=== PATIENT | male | born 1965 | race Caucasian/White ===

== ENCOUNTER 2017-09-03 11:16 | Inpatient (IN) | payer BC ==
[~2017-09-03] VITALS: Ht 182.9 cm; Wt 126.1 kg
[2017-09-03] VITALS (320 sets, daily range): BP systolic 135–149; BP diastolic 80–91; PULSE 74–77; TEMP 97.8–97.9; O2SAT 87–100
[~2017-09-03 11:16] MED LIST: AMBIEN10 MG PO; ASPIRIN 32325 MG/TAB PO; ASPIRIN E.C. 8181 MG PO; BENICAR 20MG TA20 MG PO; BLOOD PRESSURE PILL; BRILINTA90 MG PO; CARISOPRODOL; FLOMAX 0.40.4 MG/CAP PO; GLUCOPHAGE500 MG/TAB PO; ISMO 20MG20 MG PO; PERCOCET 325 MG1 TA2 PO; PHENERGAN12.5 M1 PO; PRILOSEC 20MG20 MG PO; PROCARDIA20 MG PO; TOPROL XL 50MG50 MG PO; TYLENOL 500MG500 MG PO; VICODIN 5/5001 UDTAB PO
[2017-09-03 11:51] LABS: BASO # 0.1 (0.0-0.2); EOS # 0.3 (0.0-0.7); EOS % 2.5 % (0-4.0); GRAN # 5.4 (1.4-6.5); GRAN % 54.5 % (42.2-75.2); HEMATOCRIT 42.3 % (42.0-52.0); HEMOGLOBIN 15.3 g/dl (13.5-18.0); LYMPH # 3.2 (1.2-3.4); LYMPH % 32.4 % (20.0-51.0); MEAN CELL VOLUME 89 fl (80.0-100.0); MEAN CORPUSCULAR HEMOGLOBIN 32 pg (27.0-31.0); MEAN CORPUSCULAR HGB CONC 36 g/dl (33.0-37.0); MEAN PLATELET VOLUME 10.6 fl (7.4-10.4); MONO # 0.9 (0.1-0.6); MONO % 9.3 % (1.7-9.3); PLATELET COUNT 209 K/mm3 (130-400); RED BLOOD COUNT 4.75 M/mm3 (4.20-5.60); REDCELL DISTRIBUTION WIDTH-CV 13.1 % (11.5-14.5)
[2017-09-03 11:55] LABS: PROTHROMBIN TIME 11.4 SECONDS (9.7-12.8)
[2017-09-03 11:58] LABS: PARTIAL THROMBOPLASTIN TIME 33.6 SECONDS (26.0-37.0)
[2017-09-03 12:05] LABS: ALANINE AMINOTRANSFERASE 77 U/L (21-72); ALBUMIN 3.7 gm/dL (3.5-5.0); ALKALINE PHOSPHATASE 66 U/L (50-136); ANION GAP 12 mmol/L (7-16); AST,SGOT 69 U/L (15-37); BILIRUBIN,TOTAL 0.8 mg/dL (0.0-1.0); BLOOD UREA NITROGEN 15 mg/dL (9-20); CALCIUM 8.9 mg/dL (8.4-10.2); CARBON DIOXIDE 24 mmol/L (22-30); CHLORIDE 107 mmol/L (98-107); CREATININE, serum 0.84 mg/dL (0.66-1.25); GLUCOSE 119 mg/dL (74-106); SODIUM 142 mmol/L (137-145); TOTAL PROTEIN 7.6 gm/dL (6.4-8.2)
[2017-09-03 12:18] LABS: TROPONIN-I < 0.012 ng/mL (0.000-0.034)
[2017-09-03] MEDS ORDERED: ASPIRIN 81M81 MG/TA2 PO (17:19)
[2017-09-03] MEDS ORDERED: FLOMAX 0.40.4 MG/CAP PO (17:19)
[2017-09-03] MEDS ORDERED: PRILOSEC 20MG20 MG PO (17:20)
[2017-09-03] MEDS ORDERED: TOPROL XL 50MG50 MG PO (17:20)
[2017-09-03] MEDS ORDERED: GLUCOPHAGE500 MG/TAB PO (17:21)
[2017-09-04] VITALS (660 sets, daily range): BP systolic 113–168; BP diastolic 61–116; PULSE 60–80; TEMP 96.4–99.5; O2SAT 83–100
[2017-09-04 06:18] LABS: BASO # 0.1 (0.0-0.2); BASO % 0.8 % (0.0-2.0); EOS # 0.3 (0.0-0.7); EOS % 3.2 % (0-4.0); HEMATOCRIT 40.2 % (42.0-52.0); LYMPH # 2.4 (1.2-3.4); LYMPH % 27.8 % (20.0-51.0); MEAN CELL VOLUME 91 fl (80.0-100.0); MEAN CORPUSCULAR HEMOGLOBIN 32 pg (27.0-31.0); MEAN CORPUSCULAR HGB CONC 35 g/dl (33.0-37.0); MEAN PLATELET VOLUME 11.1 fl (7.4-10.4); MONO # 0.8 (0.1-0.6); PLATELET COUNT 169 K/mm3 (130-400); REDCELL DISTRIBUTION WIDTH-CV 13.2 % (11.5-14.5)
[2017-09-04 06:25] LABS: ALANINE AMINOTRANSFERASE 66 U/L (21-72); ALBUMIN 3.3 gm/dL (3.5-5.0); ALKALINE PHOSPHATASE 58 U/L (50-136); ANION GAP 8 mmol/L (7-16); AST,SGOT 47 U/L (15-37); BILIRUBIN,TOTAL 0.9 mg/dL (0.0-1.0); BLOOD UREA NITROGEN 17 mg/dL (9-20); CALCIUM 8.7 mg/dL (8.4-10.2); CARBON DIOXIDE 26 mmol/L (22-30); CHLORIDE 104 mmol/L (98-107); CHOLESTEROL 162 mg/dL (120-200); CHOLESTEROL RISK RATIO 4.9; GLUCOSE 137 mg/dL (74-106); HDL CHOLESTEROL 33 mg/dL; LDL CHOLESTEROL 74 mg/dL; POTASSIUM 3.6 mmol/L (3.4-5.0); SODIUM 138 mmol/L (137-145); TOTAL PROTEIN 6.6 gm/dL (6.4-8.2); TRIGLYCERIDE 274 mg/dL
[2017-09-04 06:41] LABS: TROPONIN-I < 0.012 ng/mL (0.000-0.034)
[2017-09-05] VITALS: BP 121/89; BP 125/89; PULSE 75; TEMP 97.2; TEMP 97.3
[2017-09-05 04:00] VITALS: BP 125/67; PULSE 70; TEMP 97.2
[2017-09-05 08:00] VITALS: BP 143/94; PULSE 73; TEMP 97
[2017-09-05 10:20] LABS: CALCIUM 8.9 mg/dL (8.4-10.2); CREATININE, serum 0.81 mg/dL (0.66-1.25)
[2017-09-05] MEDS ORDERED: LIPITOR 80MG80 MG PO (10:51)
[2017-09-05] MEDS ORDERED: IMDUR 30MG30 MG/TAB PO (10:52)
[2017-09-05] MEDS ORDERED: ASPI325T6 PO (10:52)
[2017-09-05] MEDS ORDERED: ZESTRIL 5MG5 MG PO (10:52)
[2017-09-05] MEDS ORDERED: NITROSTAT0.4 MG/TAB SL (10:52)
[2017-09-05] MEDS ORDERED: GLUCOPHAGE500 MG/TAB PO (10:54)
== END 2017-09-05 11:35 | disposition home or self-care (01) | DRG 287 ==
LOC: COL.ER 11:16 → ICU 12:21 → MEDICAL 09-04 18:46 → ICU 09-04 19:07
PROVIDERS: Family Medicine; Internal Medicine; Internal Medicine Cardiovascular Disease
PROC: B2111ZZ Fluoroscopy of Multiple Coronary Arteries using Low Osmolar Contrast (ICD-10-PCS; principal; 2017-09-04)
PROC: B2151ZZ Fluoroscopy of Left Heart using Low Osmolar Contrast (ICD-10-PCS; 2017-09-04)
PROC: 4A023N7 Measurement of Cardiac Sampling and Pressure, Left Heart, Percutaneous Approach (ICD-10-PCS; 2017-09-04)
DX: I25.110 Atherosclerotic heart disease of native coronary artery with unstable angina pectoris (principal); I10 Essential (primary) hypertension; E11.9 Type 2 diabetes mellitus without complications; E66.01 Morbid (severe) obesity due to excess calories; Z68.37 Body mass index [BMI] 37.0-37.9, adult; K21.9 Gastro-esophageal reflux disease without esophagitis
CPT/HCPCS: 99223-AI; 99232-AI; 99239; C1769; C1894; J1200; J1644; J2250; J3010; J7030; Q9967

== ENCOUNTER 2018-05-26 18:20 | Emergency (ER) | payer BC, OTHER ==
[2006-01-12 05:56] VITALS: BP 132/85
[~2018-05-26] VITALS: Ht 182.9 cm; Wt 122.7 kg
[~2018-05-26 18:20] MED LIST changes: +ASPI325T6 PO; +ASPIRIN 81M81 MG/TA2 PO; +IMDUR 30MG30 MG/TAB PO; +LIPITOR 80MG80 MG PO; +NITROSTAT0.4 MG/TAB SL; +ZESTRIL 5MG5 MG PO
[2018-05-26 18:55] LABS: BASO # 0.1 (0.0-0.2); BASO % 0.8 % (0.0-2.0); EOS # 0.1 (0.0-0.7); EOS % 1.3 % (0-4.0); GRAN % 62.3 % (42.2-75.2); HEMATOCRIT 44.3 % (42.0-52.0); HEMOGLOBIN 15.7 g/dl (13.5-18.0); LYMPH % 26.7 % (20.0-51.0); MEAN CELL VOLUME 86 fl (80.0-100.0); MEAN CORPUSCULAR HEMOGLOBIN 30 pg (27.0-31.0); MEAN CORPUSCULAR HGB CONC 35 g/dl (33.0-37.0); MEAN PLATELET VOLUME 11.7 fl (7.4-10.4); MONO % 8.6 % (1.7-9.3); PLATELET COUNT 190 K/mm3 (130-400); RED BLOOD COUNT 5.16 M/mm3 (4.20-5.60); REDCELL DISTRIBUTION WIDTH-CV 11.9 % (11.5-14.5)
[2018-05-26] MEDS ORDERED: ASPIRIN 81M81 MG/TA2 PO (18:59)
[2018-05-26] MEDS ORDERED: LIPITOR 40MG TA40 MG PO (19:00)
[2018-05-26 19:16] LABS: ALANINE AMINOTRANSFERASE 62 U/L (21-72); ALBUMIN 4.1 gm/dL (3.5-5.0); ALKALINE PHOSPHATASE 107 U/L (50-136); ANION GAP 14 mmol/L (7-16); AST,SGOT 35 U/L (15-37); BILIRUBIN,TOTAL 0.7 mg/dL (0.0-1.0); BLOOD UREA NITROGEN 14 mg/dL (9-20); CALCIUM 9.8 mg/dL (8.4-10.2); CARBON DIOXIDE 23 mmol/L (22-30); CHLORIDE 95 mmol/L (98-107); CREATININE, serum 0.97 mg/dL (0.66-1.25); POTASSIUM 4.5 mmol/L (3.4-5.0); SODIUM 131 mmol/L (137-145); TOTAL PROTEIN 7.5 gm/dL (6.4-8.2)
[2018-05-26 19:24] LABS: ACETONE,SERUM NEGATIVE
[2018-05-26 20:48] LABS: COLLECTION METHOD CLEAN CATCH
[2018-05-26 20:57] LABS: PH 6 (5-8); SQUAMOUS EPITHELIAL None Seen /hpf; URINE APPEARANCE Clear; URINE BACTERIA None Seen /hpf; URINE BILIRUBIN Negative (NEGATIVE); URINE BLOOD Negative (NEGATIVE); URINE COLOR Straw; URINE GLUCOSE 3+ (NEGATIVE); URINE KETONE Negative (NEGATIVE); URINE LEUKOCYTE ESTERASE Negative (NEGATIVE); URINE NITRATE Negative (NEGATIVE); URINE PROTEIN(semi-quant) Negative (NEGATIVE); URINE RBC 0-2 /hpf; URINE UROBILINOGEN Negative (NEGATIVE)
[2018-05-26 21:24] LABS: GLUCOSE 648 mg/dL (74-106)
[2018-05-26 22:15] VITALS: BP 125/96; PULSE 98; TEMP 5
== END 2018-05-26 22:15 | disposition home or self-care (01) ==
LOC: COL.ER 18:20
PROVIDERS: Nurse Practitioner
DX: E11.65 Type 2 diabetes mellitus with hyperglycemia (principal); I10 Essential (primary) hypertension; Z90.89 Acquired absence of other organs; Z79.82 Long term (current) use of aspirin; Z79.84 Long term (current) use of oral hypoglycemic drugs
CPT/HCPCS: J1815; J7030

== ENCOUNTER 2018-07-17 06:42 | Day surgery (SDC) | payer BC, OTHER ==
[2006-01-12 05:56] VITALS: BP 132/85
[~2018-07-17] VITALS: Ht 182.9 cm; Wt 121.5 kg
[~2018-07-17 06:42] MED LIST changes: +LIPITOR 40MG TA40 MG PO
[2018-07-17 07:05] VITALS: BP 133/81; PULSE 65; TEMP 97.5
[2018-07-17] MEDS ORDERED: ZESTRIL 5MG5 MG PO (07:07)
[2018-07-17] MEDS ORDERED: GLUCOPHAGE500 MG/TAB PO (07:08)
[2018-07-17] MEDS ORDERED: NITROSTAT0.4 MG/TAB SL (07:30)
[2018-07-17 10:20] VITALS: BP 129/79; PULSE 68; TEMP 97.8
--- NOTE | 2018-07-17 10:20 | NUR ---
The patient arrived back to [facility] from the recovery room at this time. The patient appears alert and oriented and verbalizes a desire to be discharged "as soon as he can". The patient's post operative vital signs were started at this time. The patient's dressing to his abdomen appears clean, dry, and intact. The patient agrees to try some wheat toast and apple juice at this time. Call light is within reach. The patient denies any needs at this time. Will continue to monitor the patient.
[2018-07-17 10:35] VITALS: BP 118/81; PULSE 65
--- NOTE | 2018-07-17 10:35 | NUR ---
The patient appears to be tolerating the food and drink well. The patient denies the need for any PRN pain medication at this time. Vital signs appear stable. Will continue to monitor the patien.t
[2018-07-17] MEDS ORDERED: NORCO 325 MG-7.1 TAB PO (10:42)
[2018-07-17 10:50] VITALS: BP 125/78; PULSE 66
--- NOTE | 2018-07-17 10:50 | NUR ---
The patient ambulated to the bathroom with the stand by assistance of one nurse and appeared to tolerate the activity well. The patient does report wanting a PRN pain pill before discharge. The patient voided without difficulty and is going to get dressed and notify the staff when he is ready to review his discharge paperwork.
--- NOTE | 2018-07-17 11:00 | NUR ---
Discharge instructions were reviewed with the patient at this time. He verbalized understanding and has no questions for the nurse at this time. The patient's IV to his left hand was removed and a pressure dressing was applied to the site. The patient is dressed and ready to be escorted out.
--- NOTE | 2018-07-17 11:09 | NUR ---
The patient was escorted out via wheelchair to a private vehicle by ABUNDIO Mora. The patient's belongings and discharge paperwork were sent with him. The patient's significant other, Meg, is present to drive him home.
== END 2018-07-17 11:09 | disposition home or self-care (01) ==
LOC: SDCO 06:42
DX: K42.0 Umbilical hernia with obstruction, without gangrene (principal); I10 Essential (primary) hypertension; E11.9 Type 2 diabetes mellitus without complications; Z79.4 Long term (current) use of insulin; Z90.5 Acquired absence of kidney; Z90.49 Acquired absence of other specified parts of digestive tract; G47.33 Obstructive sleep apnea (adult) (pediatric); K21.9 Gastro-esophageal reflux disease without esophagitis; Z68.36 Body mass index [BMI] 36.0-36.9, adult; N40.0 Benign prostatic hyperplasia without lower urinary tract symptoms; Z79.899 Other long term (current) drug therapy
CPT/HCPCS: C1781; J0690; J1100; J1885; J2405; J2704; J3010; J7030

== ENCOUNTER 2019-03-22 08:47 | Emergency (ER) | payer BC, OTHER ==
[2006-01-12 05:56] VITALS: BP 132/85
[~2019-03-22] VITALS: Ht 182.9 cm; Wt 122.7 kg
[~2019-03-22 08:47] MED LIST changes: +NORCO 325 MG-7.1 TAB PO
[2019-03-22 08:52] VITALS: BP 155/90; TEMP 97.7
[2019-03-22 10:20] VITALS: PULSE 81
[2019-03-22] MEDS ORDERED: NORCO 325 MG-51 TAB PO (10:21)
== END 2019-03-22 10:20 | disposition home or self-care (01) ==
LOC: COL.ER 08:47
DX: S83.91XA Sprain of unspecified site of right knee, initial encounter (principal); I10 Essential (primary) hypertension; E11.9 Type 2 diabetes mellitus without complications; Z79.84 Long term (current) use of oral hypoglycemic drugs; Z79.82 Long term (current) use of aspirin; X50.1XXA Overexertion from prolonged static or awkward postures, initial encounter
CPT/HCPCS: 31869; L1830

== ENCOUNTER 2019-10-22 18:48 | Emergency (ER) | payer BC ==
[2006-01-12 05:56] VITALS: BP 132/85
[~2019-10-22] VITALS: Ht 182.9 cm; Wt 125.0 kg
[~2019-10-22 18:48] MED LIST changes: +NORCO 325 MG-51 TAB PO
[2019-10-22 18:57] VITALS: TEMP 98.1
[2019-10-22] MEDS ORDERED: CEPHALEXIN500 M1 PO (20:29)
[2019-10-22 20:48] VITALS: BP 148/98; PULSE 79
== END 2019-10-22 20:48 | disposition home or self-care (01) ==
LOC: COL.ER 18:48
DX: S60.552A Superficial foreign body of left hand, initial encounter (principal); E11.9 Type 2 diabetes mellitus without complications; I10 Essential (primary) hypertension; Z90.89 Acquired absence of other organs; Z79.82 Long term (current) use of aspirin; Z79.84 Long term (current) use of oral hypoglycemic drugs; X58.XXXA Exposure to other specified factors, initial encounter; Y92.009 Unspecified place in unspecified non-institutional (private) residence as the place of occurrence of the external cause

== ENCOUNTER 2020-11-01 20:01 | Emergency (ER) | payer BC ==
[~2020-11-01] VITALS: Ht 182.9 cm; Wt 118.2 kg
[~2020-11-01 20:01] MED LIST changes: +CEPHALEXIN500 M1 PO
[2020-11-01 20:10] VITALS: TEMP 99.8
[2020-11-01 21:44] VITALS: BP 100/73; PULSE 87
== END 2020-11-01 21:40 | disposition home or self-care (01) ==
LOC: COL.ER 20:01
DX: U07.1 COVID-19 (principal); E11.9 Type 2 diabetes mellitus without complications; I10 Essential (primary) hypertension; Z79.84 Long term (current) use of oral hypoglycemic drugs; Z79.899 Other long term (current) drug therapy

== ENCOUNTER → 2020-11-02 | Outpatient (CLI) | payer BC | LOC: COL.RAD 10:50 | DX: U07.1 COVID-19 (principal) ==

== ENCOUNTER 2020-11-03 12:49 | Outpatient (CLI) | payer BC ==
[2006-01-12 05:56] VITALS: BP 132/85
[~2020-11-03] VITALS: Ht 182.9 cm; Wt 118.1 kg
[2020-11-03 13:16] VITALS: BP 108/66; PULSE 79; TEMP 98.7
[2020-11-03 13:30] VITALS: BP 95/48; PULSE 78
[2020-11-03 13:42] VITALS: BP 103/56; PULSE 80
[2020-11-03 14:15] VITALS: BP 108/53; PULSE 79
[2020-11-03 14:30] VITALS: BP 105/46; PULSE 81
--- NOTE | 2020-11-03 15:04 | NUR ---
Pt escorted out via ambulatory through ED entrance to home.
== END 2020-11-03 15:04 ==
LOC: EUO 12:49
DX: E11.9 Type 2 diabetes mellitus without complications (principal); E66.9 Obesity, unspecified
CPT/HCPCS: Q0244

== ENCOUNTER 2022-04-29 20:25 | Emergency (ER) | payer BC ==
[~2022-04-29] VITALS: Ht 182.9 cm; Wt 125.0 kg
[2022-04-29 20:28] VITALS: TEMP 98
[2022-04-29 21:09] LABS: BASO # 0.1 K/mm3 (0.0-0.2); BASO % 0.7 % (0.0-2.0); EOS # 0.2 K/mm3 (0.0-0.7); EOS % 2.2 % (0.0-4.0); GRAN # 4.6 K/mm3 (1.4-6.5); GRAN % 51.9 % (42.2-75.2); HEMATOCRIT 36.3 % (42.0-52.0); HEMOGLOBIN 12.8 g/dl (13.5-18.0); LYMPH # 3.2 K/mm3 (1.2-3.4); LYMPH % 35.6 % (20.0-51.0); MEAN CELL VOLUME 88 fl (80.0-100.0); MEAN CORPUSCULAR HEMOGLOBIN 31 pg (27-31); MEAN CORPUSCULAR HGB CONC 35 g/dl (33.0-37.0); MEAN PLATELET VOLUME 10.5 fl (7.4-10.4); MONO # 0.8 K/mm3 (0.1-0.6); MONO % 9.4 % (1.7-9.3); PLATELET COUNT 174 K/mm3 (130-400); RED BLOOD COUNT 4.11 M/mm3 (4.20-5.60); REDCELL DISTRIBUTION WIDTH-CV 11.9 % (11.5-14.5)
[2022-04-29 21:17] LABS: PROTHROMBIN TIME 11.7 SECONDS (9.7-12.8)
[2022-04-29 21:19] LABS: PARTIAL THROMBOPLASTIN TIME 32.5 SECONDS (26.0-37.0)
[2022-04-29 21:28] LABS: ALBUMIN 3.6 gm/dL (3.5-5.0); BILIRUBIN,TOTAL 0.4 mg/dL (0.2-1.2); CALCIUM 8.8 mg/dL (8.4-10.2); CREATININE, serum 1.95 mg/dL (0.72-1.25); POTASSIUM 4.3 mmol/L (3.5-4.5)
[2022-04-29 21:34] LABS: TROPONIN-I 0.018 ng/mL (0.00-0.033)
[2022-04-29 22:05] VITALS: BP 149/78; PULSE 80
== END 2022-04-29 22:10 | disposition home or self-care (01) ==
LOC: COL.ER 20:25
PROVIDERS: Family Medicine
DX: I10 Essential (primary) hypertension (principal); E11.9 Type 2 diabetes mellitus without complications; N28.9 Disorder of kidney and ureter, unspecified; Z90.5 Acquired absence of kidney; Z28.310 Unvaccinated for COVID-19
CPT/HCPCS: J0360